=== PATIENT | female | born 1975 | race Two or more races ===

== ENCOUNTER 2021-06-25 15:33 | Inpatient (IN) | payer MEDICAID ==
[~2021-06-25] VITALS: Ht 160 cm; Wt 57.3 kg
[2021-06-25] MEDS ORDERED: dilTIAZem 25 MG/5 ML VIAL IV ONE ×2 (15:57→16:30)
[2021-06-25] MEDS ORDERED: diphenhdrAMINE HCL 50 MG/1 ML VL ONE (16:02)
[2021-06-25] MEDS ORDERED: METOPROLOL TARTRATE 1MG/1ML-5ML VIAL IV ONE ×2 (16:07→16:30)
[2021-06-25 16:11] LABS: Basophils # (auto) 0 10 ^3/uL (0-0.2); Basophils % (auto) 0.3 % (0.0-2.0); Eosinophils # (auto) 0.1 10 ^3/uL (0-0.8); Eosinophils % (auto) 1.1 % (0.0-7.0); Hemoglobin 14.5 g/dL (12.2-16.2); Lymphocytes # (auto) 1.8 10 ^3/uL (0.4-5.4); Lymphocytes % (auto) 24.6 % (10.0-50.0); Mean Corpuscular Hemoglobin 28.8 pg (28.0-32.0); Mean Corpuscular Hgb Conc. 33.7 g/dL (32.0-36.0); Mean Corpuscular Volume 85.5 fL (80.0-100.0); Monocytes # (auto) 0.7 10 ^3/uL (0-1.3); Neutrophils # (auto) 4.7 10 ^3/uL (1.6-8.6); Nucleated Red Blood Cells % 0.1 %; Red Blood Cells 5.03 10^6/uL (4.0-5.20); Red Cell Distribution Width 14.5 % (11.8-14.3); White Blood Cell 7.3 10^3/uL (4.4-10.8)
[2021-06-25 16:26] LABS: Albumin 3.6 g/dL (3.4-5.0); Magnesium 2.1 mg/dL (1.6-2.6)
[2021-06-25] MEDS ORDERED: SODIUM CHLORIDE 0.9% 1,000 ML IV ONE (16:30)
[2021-06-25] MEDS ORDERED: diphenhdrAMINE HCL 50 MG/1 ML VL IV ONE (16:30)
[2021-06-25 16:33] LABS: BUN/Creatinine Ratio 28.6; Bilirubin, Total 0.8 mg/dL (0.2-1.0); Total Protein 7.2 g/dL (6.4-8.2)
[2021-06-25 16:34] LABS: Potassium 2.9 mmol/L (3.5-5.1)
[2021-06-25] MEDS ORDERED: POTASSIUM EFFERVESENT TAB 25 MEQ PO ONE (17:15)
[2021-06-25 19:00] LABS: INR 1.13 (0.9-1.15); Partial Thromboplastin Time 22.8 sec (23.6-33.0)
[2021-06-26] MEDS ORDERED: ONDANSETRON HCL 4 MG/2 ML VIAL IV PRN (00:45)
[2021-06-26] MEDS ORDERED: ACETAMINOPHEN 325 MG TAB PO PRN (00:45)
[2021-06-26] MEDS ORDERED: hydrALAZINE HCL 20 MG/ML VL IV PRN (00:45)
[2021-06-26] MEDS ORDERED: MORPHINE SULFATE INJECTION 2 MG/ML SYRG IV PRN (00:45)
[2021-06-26] MEDS ORDERED: TEMAZEPAM 15 MG CAP PO PRN (00:45)
[2021-06-26] MEDS ORDERED: NITROGLYCERIN 0.4 MG SL TAB SL PRN (00:45)
[2021-06-26] MEDS: METOPROLOL TARTRATE 25 MG TAB PO SCH ×3 (05:44→21:53)
[2021-06-26 08:12] LABS: BUN/Creatinine Ratio 55.2; Calcium 8.5 mg/dL (8.5-10.1)
[2021-06-26 08:33] LABS: Potassium 2.8 mmol/L (3.5-5.1)
[2021-06-26] MEDS ORDERED: POTASSIUM CHLORIDE 60 MEQ, LIDOCAINE 1% (LOCAL ANESTH.) 6 ML in SODIUM CHL 0.9% 500 ML IV ONE (08:45)
[2021-06-26 09:02] LABS: Basophils # (auto) 0 10 ^3/uL (0-0.2); Basophils % (auto) 0.3 % (0.0-2.0); Eosinophils # (auto) 0 10 ^3/uL (0-0.8); Eosinophils % (auto) 0.2 % (0.0-7.0); Hematocrit 38.2 % (36.0-46.0); Lymphocytes # (auto) 0.9 10 ^3/uL (0.4-5.4); Lymphocytes % (auto) 11.6 % (10.0-50.0); Mean Corpuscular Hemoglobin 29.1 pg (28.0-32.0); Mean Corpuscular Volume 85.6 fL (80.0-100.0); Monocytes # (auto) 0.4 10 ^3/uL (0-1.3); Neutrophils # (auto) 6.5 10 ^3/uL (1.6-8.6); Neutrophils % (auto) 82.9 % (37.0-80.0); Nucleated Red Blood Cells % 0.1 %; Red Blood Cells 4.46 10^6/uL (4.0-5.20); Red Cell Distribution Width 14.7 % (11.8-14.3); White Blood Cell 7.9 10^3/uL (4.4-10.8)
[2021-06-26] MEDS ORDERED: ASPirin 81 mg TAB PO SCH (10:00)
[2021-06-26] MEDS: PANTOPRAZOLE 40 MG TAB PO SCH (10:16)
[2021-06-26] MEDS: ENOXAPARIN SOD 40 MG/0.4 ML SYRINGE SC SCH (10:16)
[2021-06-26 14:30] LABS: Alcohol, Urine < 3.0 mg/dL (0-10); Amphetamine Screen, Urine NEGATIVE (NEGATIVE); Barbiturate Scree,Urine NEGATIVE (NEGATIVE); Benzodiazephine Screen, Urine NEGATIVE (NEGATIVE); Cannabinoid Screen, Urine NEGATIVE (NEGATIVE); Cocaine Screen, Urine NEGATIVE (NEGATIVE); Opiate Scree,Urine NEGATIVE (NEGATIVE); Phencyclidine Screen, Urine NEGATIVE (NEGATIVE)
[2021-06-26 14:43] LABS: Urine Bacteria NONE SEEN /hpf (None Seen); Urine Blood Negative /uL (Negative); Urine Specific Gravity 1.017 (1.001-1.035); Urine WBC 1 /hpf (0 - 5)
[2021-06-26 16:40] VITALS: BP 131/84
[2021-06-26 16:50] VITALS: BP 131/85
[2021-06-26 17:48] LABS: Free T3 11.35 pg/mL (2.3-4.2); Free T4 (Free Thyroxine) 4.53 ng/dL (0.89-1.76)
[2021-06-26] MEDS ORDERED: LORazepam 0.5 MG TAB PO PRN (19:15)
[2021-06-26] MEDS ORDERED: methIMAzole 5 MG TAB PO SCH (22:00)
[2021-06-26] MEDS ORDERED: ATORVASTATIN 20 MG TAB PO SCH (22:00)
[2021-06-26 22:25] VITALS: BP 129/75
[2021-06-27 05:11] VITALS: BP 126/75
[2021-06-27 05:29] LABS: Basophils # (auto) 0 10 ^3/uL (0-0.2); Basophils % (auto) 0.4 % (0.0-2.0); Eosinophils # (auto) 0.2 10 ^3/uL (0-0.8); Eosinophils % (auto) 2.8 % (0.0-7.0); Hemoglobin 12.4 g/dL (12.2-16.2); Lymphocytes # (auto) 1.7 10 ^3/uL (0.4-5.4); Lymphocytes % (auto) 29.3 % (10.0-50.0); Mean Corpuscular Hemoglobin 29.9 pg (28.0-32.0); Mean Corpuscular Hgb Conc. 34.4 g/dL (32.0-36.0); Monocytes # (auto) 0.6 10 ^3/uL (0-1.3); Monocytes % (auto) 10.4 % (0.0-12.0); Neutrophils # (auto) 3.3 10 ^3/uL (1.6-8.6); Neutrophils % (auto) 57.1 % (37.0-80.0); Nucleated Red Blood Cells % 0.1 %; Red Blood Cells 4.14 10^6/uL (4.0-5.20); Red Cell Distribution Width 14.6 % (11.8-14.3); White Blood Cell 5.8 10^3/uL (4.4-10.8)
[2021-06-27 05:53] LABS: BUN/Creatinine Ratio 48.4; Calcium 8.3 mg/dL (8.5-10.1)
[2021-06-27] MEDS ORDERED: POTASSIUM CHL 20 Meq TABLET PO ONE (09:00)
[2021-06-27] MEDS: PROPRANOLOL HCL 20 MG TAB PO SCH ×2 (09:24→21:45)
[2021-06-27] MEDS: PANTOPRAZOLE 40 MG TAB PO SCH (09:24)
[2021-06-27] MEDS: ENOXAPARIN SOD 40 MG/0.4 ML SYRINGE SC SCH (09:24)
[2021-06-27 09:39] VITALS: BP 130/72
[2021-06-27] MEDS ORDERED: ASPirin 81 mg TAB PO SCH (10:00)
[2021-06-27 13:02] VITALS: BP 113/81
[2021-06-27 16:45] VITALS: BP 132/83
[2021-06-27 22:25] VITALS: BP 143/95
[2021-06-27 22:45] VITALS: BP 133/84
[2021-06-28 05:25] VITALS: BP 99/58
[2021-06-28 09:00] VITALS: BP 132/82
[2021-06-28] MEDS: PANTOPRAZOLE 40 MG TAB PO SCH (09:45)
[2021-06-28] MEDS: PROPRANOLOL HCL 20 MG TAB PO SCH ×2 (09:45→22:25)
[2021-06-28] MEDS: ENOXAPARIN SOD 40 MG/0.4 ML SYRINGE SC SCH (09:46)
[2021-06-28 13:00] VITALS: BP 144/80
[2021-06-28 16:50] VITALS: BP 137/91
[2021-06-28 22:00] VITALS: BP 153/88
[2021-06-28] MEDS ORDERED: diphenhdrAMINE HCL 25 MG CAP PO ONE (22:45)
[2021-06-29 05:00] VITALS: BP 133/76
[2021-06-29 09:00] VITALS: BP 124/65
[2021-06-29] MEDS: PANTOPRAZOLE 40 MG TAB PO SCH (09:53)
[2021-06-29] MEDS: PROPRANOLOL HCL 20 MG TAB PO SCH ×2 (09:53→22:58)
[2021-06-29] MEDS: ENOXAPARIN SOD 40 MG/0.4 ML SYRINGE SC SCH (09:53)
[2021-06-29 12:51] VITALS: BP 132/88
[2021-06-29 17:00] VITALS: BP 122/91
[2021-06-29 22:00] VITALS: BP 128/88
[2021-06-30 05:00] VITALS: BP 137/86
[2021-06-30] MEDS ORDERED: PROP20TA73 PO (08:58)
[2021-06-30 09:00] VITALS: BP 135/70
[2021-06-30] MEDS: PROPRANOLOL HCL 20 MG TAB PO SCH (10:02)
[2021-06-30] MEDS: PANTOPRAZOLE 40 MG TAB PO SCH (10:02)
[2021-06-30] MEDS: ENOXAPARIN SOD 40 MG/0.4 ML SYRINGE SC SCH (10:02)
[2021-06-30 14:00] VITALS: BP 140/79
== END 2021-06-30 14:45 | disposition home or self-care (01) | DRG 201 ==
LOC: ER 15:33 → TELE 06-26 00:36 → TELE-WESTW 06-26 15:50
PROVIDERS: ADMIT Nurse Practitioner; ATTEND Internal Medicine
DX: I48.91 Unspecified atrial fibrillation (principal); Z20.822 Contact with and (suspected) exposure to COVID-19; E05.90 Thyrotoxicosis, unspecified without thyrotoxic crisis or storm; I10 Essential (primary) hypertension; E87.6 Hypokalemia; Z86.16 Personal history of COVID-19; Z88.0 Allergy status to penicillin; Z88.8 Allergy status to other drugs, medicaments and biological substances
CPT/HCPCS: 36415; 71045; 76536; 78014; 80048; 80053; 80061; 80307; 81001; 83735; 84132; 84439; 84443; 84445; 84481; 84484; 84702; 85025; 85379; 85610; 85730; 86376; 87426; 93005; 93306; 96365; 96372; 96375; G0378; J2001